=== PATIENT | female | born 1980 | race African-American/Black ===

== ENCOUNTER 2018-09-07 09:39 | Emergency (ER) | payer BC, OTHER ==
[2018-09-07] MEDS ORDERED: CYCLOBENZAPRINE 10 MG TAB ONE (10:43)
[2018-09-07] MEDS ORDERED: KETOROLAC 30 MG/ML INJ ONE (10:43)
[2018-09-07] MEDS ORDERED: HYDROCODONE/APAP 5/325 MG TAB ONE (10:43)
--- NOTE | 2018-09-07 11:25 | ER ---
Nurse's Notes [facility] Name: Mary Paul Age: 38 yrs Sex: Female : 1980 Arrival Date: 09/07/2018 Time: 09:43 Bed 12 Private MD: None, None Diagnosis: Strain of muscle, fascia and tendon of lower back;Strain of muscle and tendon of back wall of thorax Presentation: 09/07 10:01 Presenting complaint: Patient states: my back hurts started yesterday on the RIGHT tw2 side, i worked out yesterday morning and then was cleaning and it bothered me, hurts to walk. Transition of care: patient was not received from another setting of care. Onset of symptoms was September 07, 2018. Risk Assessment: Do you want to hurt yourself or someone else? Patient reports no desire to harm self or others. Initial Sepsis Screen: Does the patient meet any 2 criteria? No. Patient's initial sepsis screen is negative. Does the patient have a suspected source of infection? No. Patient's initial sepsis screen is negative. Care prior to arrival: None. 10:01 Method Of Arrival: Wheelchair tw2 10:01 Acuity: JEANE 4 tw2 Triage Assessment: 10:04 General: Appears in no apparent distress. obese, Behavior is calm, cooperative, tw2 appropriate for age. Pain: Complains of pain in right mid back and right low back. Musculoskeletal: Circulation, motion, and sensation intact. Range of motion: intact in all extremities. 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 - Social history:: Smoking status: . - Ebola Screening: : Patient denies travel to an Ebola-affected area in the 21 days before illness onset. Screenin:54 Abuse screen: Denies threats or abuse. Denies injuries from another. Nutritional iw screening: No deficits noted. Tuberculosis screening: No symptoms or risk factors identified. Fall Risk No IV (0 pts). Assessment: 10:50 General: Appears in no apparent distress. Behavior is calm, cooperative. Pain: iw Complains of pain in right leg and right low back and right mid back. Neuro: Level of Consciousness is awake, alert, obeys commands, Moves all extremities. Full function. Cardiovascular: Patient's skin is warm and dry. Respiratory: Respiratory effort is even, unlabored. GI: No signs and/or symptoms were reported involving the gastrointestinal system. Derm: Skin is intact, is healthy with good turgor. Musculoskeletal: Range of motion: intact in all extremities. Vital Signs: 10:03 BP 130 / 97; Pulse 87; Resp 18; Temp 98.2(O); Pulse Ox 100% on R/A; Weight 108.86 kg tw2 (R); Height 5 ft. 4 in. (162.56 cm); Pain 6/10; 10:03 Body Mass Index 41.20 (108.86 kg, 162.56 cm) tw2 10:03 "if i move to a 04/13" tw2 ED Course: 09:43 Patient arrived in ED. mr 09:43 None, None is Private Physician. mr 10:02 Triage completed. tw2 10:04 Arm band placed on. tw2 10:05 Khadar Manzano, CONSUELO is PHCP. pm1 10:05 Wayne Rayo MD is Attending Physician. pm1 10:23 Ruchi Penn, MAYKEL is Primary Nurse. iw 10:55 No provider procedures requiring assistance completed. Patient did not have IV access iw during this emergency room visit. 10:58 Patient has correct armband on for positive identification. iw Administered Medications: 10:43 Drug: TORadol 60 mg Route: IM; Site: left deltoid; iw 11:40 Follow up: Response: No adverse reaction iw 10:43 Drug: Flexeril 10 mg Route: PO; iw 11:40 Follow up: Response: No adverse reaction iw 10:43 Drug: [place] 5 mg-325 mg 1 tabs Route: PO; iw 11:40 Follow up: Response: No adverse reaction iw Outcome: 11:21 Discharge ordered by . pm1 11:44 Discharged to home via wheelchair, with family. iw 11:44 Condition: good 11:44 Discharge instructions given to patient, Instructed on discharge instructions, follow up and referral plans. medication usage, Demonstrated understanding of instructions, follow-up care, medications, Prescriptions given X 3. 11:45 Patient left the ED. iw Signatures: Doris Ordonez Irene, RN RN iw Khadar Manzano, PERSONAL CONSULTANT PERSONAL CONSULTANT pm1 Alicja Kinney RN RN tw2
--- NOTE | 2018-09-07 11:25 | EDPHYS ---
Physician Documentation [facility] Name: Mary Paul Age: 38 yrs Sex: Female : 1980 Arrival Date: 09/07/2018 Time: 09:43 Bed 12 Private MD: None, None ED Physician Wayne Rayo HPI: 09/07 11:03 This 38 yrs old Black Female presents to ER via Wheelchair with complaints of Back Pain.pm1 11:03 The patient presents with pain that is acute. The symptoms are located in the right mid pm1 back and right low back. Onset: The symptoms/episode began/occurred yesterday. The pain does not radiate. Associated signs and symptoms: Pertinent negatives: abdominal pain, chest pain, constipation, dysuria, fever, headache, incontinence, nausea, numbness, tingling, vomiting, weakness. The problem was sustained Exercising and cleaning. Modifying factors: The patient symptoms are alleviated by heat application, rest, the patient symptoms are aggravated by bending, movement, walking, raising right arm. Severity of symptoms: in the emergency department the symptoms are actually worse. The patient has not experienced similar symptoms in the past. The patient has not recently seen a physician. 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 - Social history:: Smoking status: . - Ebola Screening: : Patient denies travel to an Ebola-affected area in the 21 days before illness onset. ROS: 11:03 Constitutional: Negative for fever, chills, and weight loss, Eyes: Negative for injury, pm1 pain, redness, and discharge, ENT: Negative for injury, pain, and discharge, Neck: Negative for injury, pain, and swelling, Cardiovascular: Negative for chest pain, palpitations, and edema, Respiratory: Negative for shortness of breath, cough, wheezing, and pleuritic chest pain, Abdomen/GI: Negative for abdominal pain, nausea, vomiting, diarrhea, and constipation. 11:03 : Negative for injury, bleeding, discharge, and swelling, MS/Extremity: Negative for injury and deformity, Skin: Negative for injury, rash, and discoloration, Neuro: Negative for headache, weakness, numbness, tingling, and seizure. 11:03 Back: Positive for pain with movement, of the right mid back and right low back. Exam: 11:03 Constitutional: This is a well developed, well nourished patient who is awake, alert, pm1 and in no acute distress. Head/Face: Normocephalic, atraumatic. Eyes: Pupils equal round and reactive to light, extra-ocular motions intact. Lids and lashes normal. Conjunctiva and sclera are non-icteric and not injected. Cornea within normal limits. Periorbital areas with no swelling, redness, or edema. ENT: Nares patent. No nasal discharge, no septal abnormalities noted. Tympanic membranes are normal and external auditory canals are clear. Oropharynx with no redness, swelling, or masses, exudates, or evidence of obstruction, uvula midline. Mucous membranes moist. Neck: Trachea midline, no thyromegaly or masses palpated, and no cervical lymphadenopathy. Supple, full range of motion without nuchal rigidity, or vertebral point tenderness. No Meningismus. Chest/axilla: Normal chest wall appearance and motion. Nontender with no deformity. No lesions are appreciated. Cardiovascular: Regular rate and rhythm with a normal S1 and S2. No gallops, murmurs, or rubs. Normal PMI, no JVD. No pulse deficits. Respiratory: Lungs have equal breath sounds bilaterally, clear to auscultation and percussion. No rales, rhonchi or wheezes noted. No increased work of breathing, no retractions or nasal flaring. Abdomen/GI: Soft, non-tender, with normal bowel sounds. No distension or tympany. No guarding or rebound. No evidence of tenderness throughout. 11:03 Skin: Warm, dry with normal turgor. Normal color with no rashes, no lesions, and no evidence of cellulitis. MS/ Extremity: Pulses equal, no cyanosis. Neurovascular intact. Full, normal range of motion. 11:03 Back: normal spinal alignment noted, muscle spasm, is appreciated in the right mid back and right low back. 11:03 Neuro: Orientation: is normal, Mentation: is normal, Motor: is normal, moves all fours, Sensation: is normal, no obvious gross deficits. Vital Signs: 10:03 BP 130 / 97; Pulse 87; Resp 18; Temp 98.2(O); Pulse Ox 100% on R/A; Weight 108.86 kg tw2 (R); Height 5 ft. 4 in. (162.56 cm); Pain 6/10; 10:03 Body Mass Index 41.20 (108.86 kg, 162.56 cm) tw2 10:03 "if i move to a 04/13" tw2 MDM: 10:15 Patient medically screened. pm1 10:27 Data reviewed: vital signs. Data interpreted: Pulse oximetry: on room air is 100 %. pm1 Interpretation: normal. 11:21 Counseling: I had a detailed discussion with the patient and/or guardian regarding: the pm1 historical points, exam findings, and any diagnostic results supporting the discharge/admit diagnosis, the need for outpatient follow up, to return to the emergency department if symptoms worsen or persist or if there are any questions or concerns that arise at home. Administered Medications: 10:43 Drug: TORadol 60 mg Route: IM; Site: left deltoid; iw 11:40 Follow up: Response: No adverse reaction iw 10:43 Drug: Flexeril 10 mg Route: PO; iw 11:40 Follow up: Response: No adverse reaction iw 10:43 Drug: [place] 5 mg-325 mg 1 tabs Route: PO; iw 11:40 Follow up: Response: No adverse reaction iw Disposition: 12:00 Co-signature as Attending Physician, Wayne Rayo MD I agree with the assessment and kdr plan of care. Disposition: 09/07/18 11:21 Discharged to Home. Impression: Strain of muscle, fascia and tendon of lower back, Strain of muscle and tendon of back wall of thorax. - Condition is Stable. - Discharge Instructions: Back Pain, Adult, Muscle Strain, Back Injury Prevention, [id number]. - Prescriptions for Naprosyn 500 mg Oral Tablet - take 1 tablet by ORAL route 2 times per day take with food; 30 tablet. Tylenol- Codeine #3 300-30 mg Oral Tablet - take 2 tablets by ORAL route every 6 hours As needed; 20 tablet. Cyclobenzaprine 10 mg Oral Tablet - take 1 tablet by ORAL route every 8 hours As needed; 30 tablet. - Work release form, Medication Reconciliation Form, Thank You Letter, Prescription Opioid Use form. - Follow up: Emergency Department; When: As needed; Reason: Worsening of condition. Follow up: Private Physician; When: 2 - 3 days; Reason: Recheck today's complaints, Continuance of care, Re-evaluation by your physician. - Problem is new. - Symptoms have improved. Signatures: Wayne Rayo MD MD kdr Ruchi Penn RN RN iw Khadar Manzano NP [employer] pm1 Alicja Kinney RN RN tw2 Corrections: (The following items were deleted from the chart) 11:45 11:21 09/07/2018 11:21 Discharged to Home. Impression: Strain of muscle, fascia and iw tendon of lower back; Strain of muscle and tendon of back wall of thorax. Condition is Stable. Forms are Medication Reconciliation Form, Thank You Letter, Antibiotic Education, Prescription Opioid Use. Follow up: Emergency Department; When: As needed; Reason: Worsening of condition. Follow up: Private Physician; When: 2 - 3 days; Reason: Recheck today's complaints, Continuance of care, Re-evaluation by your physician. Problem is new. Symptoms have improved. pm1
== END 2018-09-07 11:45 | disposition home or self-care (01) ==
LOC: ER 09:39
DX: S39.012A Strain of muscle, fascia and tendon of lower back, initial encounter (principal); S29.012A Strain of muscle and tendon of back wall of thorax, initial encounter
CPT/HCPCS: 96372; 99283

== ENCOUNTER 2024-03-21 09:45 | Emergency (ER) | payer BC ==
--- NOTE | 2024-03-21 09:57 | EDPHYS ---
Physician Documentation [facility] Name: Mary Paul Age: 43 yrs Sex: Female : 1980 Arrival Date: 03/21/2024 Time: 09:45 Bed 16 Private MD: ED Physician Ron Hartmann HPI: 03/21 10:00 This 43 yrs old Black Female presents to ER via Ambulatory with complaints of Drainage rt From Ear. 10:00 Patient presents to the ED with drainage from the left ear with minimal pain since last rt night. Reports nasal congestion but denies other acute complaints. Symptoms are mild in severity, no other aggravating alleviating factors.. Historical: - Allergies: :48 No Known Allergies; ll1 - Home Meds: :54 None [Active]; ll1 - PMHx: :54 None; ll1 - PSHx: 09:54 section; ll1 - Immunization history:: Adult Immunizations up to date. - Social history:: Smoking status: Patient denies any tobacco usage or history of. - Family history:: not pertinent. ROS: 10:00 Constitutional: Negative for fever, chills, and weight loss, Cardiovascular: Negative rt for chest pain, palpitations, and edema, Respiratory: Negative for shortness of breath, cough, wheezing, and pleuritic chest pain, Abdomen/GI: Negative for abdominal pain, nausea, vomiting, diarrhea, and constipation, Neuro: Negative for headache, weakness, numbness, tingling, and seizure, 10:00 ENT: Positive for drainage from ear(s), rhinorrhea, Exam: 10:00 Constitutional: This is a well developed, well nourished patient who is awake, alert, rt and in no acute distress. Head/Face: Normocephalic, atraumatic. Chest/axilla: Normal chest wall appearance and motion. Nontender with no deformity. No lesions are appreciated. Cardiovascular: Regular rate and rhythm with a normal S1 and S2. No gallops, murmurs, or rubs. Normal PMI, no JVD. No pulse deficits. Respiratory: Lungs have equal breath sounds bilaterally, clear to auscultation and percussion. No rales, rhonchi or wheezes noted. No increased work of breathing, no retractions or nasal flaring. Abdomen/GI: Soft, non-tender, with normal bowel sounds. No distension or tympany. No guarding or rebound. No evidence of tenderness throughout. Skin: Warm, dry with normal turgor. Normal color with no rashes, no lesions, and no evidence of cellulitis. MS/ Extremity: Pulses equal, no cyanosis. Neurovascular intact. Full, normal range of motion. 10:00 ENT: Otorrhea from left EAC, TM is clear, no signs of mastoiditis, no posterior pharyngeal erythema or exudates, right TM is clear. Vital Signs: 09:54 BP 155 / 112; Pulse 112; Resp 17; Temp 97.8; Pulse Ox 98% ; Weight 108.86 kg; Height 5 ll1 ft. 5 in. ; 09:54 Body Mass Index 39.94 (108.86 kg, 165.1 cm) ll1 MDM: 09:49 Patient medically screened. rt 10:00 Differential diagnosis: otitis media, otitis externa. Data reviewed: vital signs, rt nurses notes. Test considered but Not performed: CT: No signs of mastoiditis, CT scan not indicated. Counseling: I had a detailed discussion with the patient and/or guardian regarding the historical points, exam findings, and any diagnostic results supporting the discharge/admit diagnosis, the need for outpatient follow up. Administered Medications: No medications were administered Disposition Summary: 03/21/24 09:57 Discharge Ordered Notes: Location: Home rt Problem: new rt Symptoms: are unchanged rt Condition: Stable rt Diagnosis - Unspecified otitis externa, left ear rt Followup: rt - With: Private Physician - When: 2 - 3 days - Reason: Discharge Instructions: - Discharge Summary Sheet rt - Otitis Externa rt Forms: - Medication Reconciliation Form rt - Antibiotic Education rt - Prescription Opioid Use rt - Patient Portal Instructions rt - Leadership Thank You Letter rt Prescriptions: - Ciprodex 0.3-0.1 % Otic drops, suspension - instill 4 drops OTIC route every 12 hours for 7 days please disp qs for 7 days, rt for ears ONLY; 1 Each; Refills: 0, Product Selection Permitted Signatures: Behzad Domínguez RN RN ll1 Ron Hartmann MD MD rt
--- NOTE | 2024-03-21 09:57 | ER ---
Nurse's Notes [facility] Name: Mary Paul Age: 43 yrs Sex: Female : 1980 Arrival Date: 03/21/2024 Time: 09:45 Bed 16 Private MD: Diagnosis: Unspecified otitis externa, left ear Presentation: 03/21 09:48 Coronavirus screen: Client denies travel out of the [place] in the last 14 days. At this ll1 time, the client does not indicate any symptoms associated with coronavirus-19. Ebola Screen: Patient denies travel to an Ebola-affected area in the 21 days before illness onset. Initial Sepsis Screen: Does the patient meet any 2 criteria? No. Patient's initial sepsis screen is negative. Does the patient have a suspected source of infection? No. Patient's initial sepsis screen is negative. Risk Assessment: Do you want to hurt yourself or someone else? Patient reports no desire to harm self or others. 09:48 Method Of Arrival: Ambulatory ll1 09:48 Acuity: JEANE 4 ll1 09:54 Chief complaint: Patient states: Congestion, slight cough and fever started yesterday. ll1 L ear pain with drainage started throughout the night. Onset of symptoms was March 20, 2024. Triage Assessment: 09:49 General: Appears uncomfortable, Behavior is calm, cooperative, appropriate for age. ll1 Pain: Complains of pain in left ear Quality of pain is described as aching. Historical: - Allergies: 09:48 No Known Allergies; ll1 - Home Meds: 09:54 None [Active]; ll1 - PMHx: 09:54 None; ll1 - PSHx: 09:54 section; ll1 - Immunization history:: Adult Immunizations up to date. - Social history:: Smoking status: Patient denies any tobacco usage or history of. - Family history:: not pertinent. Screenin:17 [facility] ED Fall Risk Assessment (Adult) History of falling in the last 3 months, kc6 including since admission No falls in past 3 months (0 pts) Confusion or Disorientation No (0 pts) Intoxicated or Sedated No (0 pts) Impaired Gait No (0 pts) Mobility Assist Device Used No (0 pt) Altered Elimination No (0 pt) Score/Fall Risk Level 0 - 2 = Low Risk Oriented to surroundings. Abuse screen: Denies threats or abuse. Denies injuries from another. Nutritional screening: No deficits noted. Tuberculosis screening: No symptoms or risk factors identified. Assessment: 10:17 General: Appears in no apparent distress. comfortable, well groomed, well developed, kc6 Behavior is calm, cooperative, appropriate for age, Reports fever for 1-2 days. Pain: Complains of pain in left ear. Neuro: Level of Consciousness is awake, alert, obeys commands, Oriented to person, place, time, situation, Appropriate for age. Cardiovascular: Capillary refill < 3 seconds. Respiratory: Reports cough that is Airway is patent Trachea midline Respiratory effort is even, unlabored, Respiratory pattern is regular, symmetrical. GI: No signs and/or symptoms were reported involving the gastrointestinal system. : No signs and/or symptoms were reported regarding the genitourinary system. EENT: Ear canal w/ drainage noted from left ear Reports pain when swallowing. Derm: No signs and/or symptoms reported regarding the dermatologic system. Skin is intact, is healthy with good turgor, Skin is pink, warm \T\ dry. Musculoskeletal: No signs and/or symptoms reported regarding the musculoskeletal system. Circulation, motion, and sensation intact. Capillary refill < 3 seconds, Range of motion: intact in all extremities. Vital Signs: 09:54 BP 155 / 112; Pulse 112; Resp 17; Temp 97.8; Pulse Ox 98% ; Weight 108.86 kg; Height 5 ll1 ft. 5 in. ; 09:54 Body Mass Index 39.94 (108.86 kg, 165.1 cm) ll1 ED Course: 09:47 Patient arrived in ED. mr 09:48 Ron Hartmann MD is Attending Physician. rt 09:48 Arm band placed on Patient placed in an exam room, on a stretcher. ll1 09:49 Triage completed. ll1 09:51 Tamie Garay, MAYKEL is Primary Nurse. kc6 10:17 Patient has correct armband on for positive identification. Bed in low position. Pulse kc6 ox on. NIBP on. Pillow given. 10:18 No provider procedures requiring assistance completed. Patient did not have IV access kc6 during this emergency room visit. Administered Medications: No medications were administered Medication: 10:19 VIS not applicable for this client. kc6 Outcome: 09:57 Discharge ordered by . rt 10:18 Discharged to home ambulatory, kc6 10:18 Condition: good 10:18 Discharge instructions given to patient, Instructed on discharge instructions, follow up and referral plans. medication usage, Demonstrated understanding of instructions, follow-up care, medications, Prescriptions given X 1, 10:19 Patient left the ED. kc6 Signatures: Doris Ordonez, Reg Reg mr Behzad Domínguez RN RN ll1 Tamie Garay RN RN kc6 Ron Hartmann MD MD rt
[2024-03-21 10:23] VITALS: BP 155/112; TEMP 97.8; O2SAT 98
== END 2024-03-21 10:19 | disposition home or self-care (01) ==
LOC: ER 09:45
DX: H60.92 Unspecified otitis externa, left ear (principal)
CPT/HCPCS: 99283

== ENCOUNTER 2024-11-01 11:15 | Emergency (ER) | payer BC ==
[2024-11-01 12:10] LABS: Absolute Basophils 0.1 K/uL (0-0.5); Absolute Eosinophils 0.2 K/uL (0-0.5); Absolute Lymphocytes (CBC) 2.1 K/uL (0.7-4.9); Absolute Monocytes 0.8 K/uL (0.1-1.3); Absolute Neutrophil 3.8 K/uL (1.8-8.0); Hematocrit 38.5 % (36.0-45.0); MCH 29.2 pg (27.0-35.0); MCHC 33.8 g/dL (32.0-36.0); MCV 86.5 fL (80-100); MPV 8.2 fL (7.6-11.3); Platelets 231 thou/uL (152-406); RBC Red Blood Cell Count 4.46 M/uL (3.86-4.86)
--- NOTE | 2024-11-01 12:18 | RAD REPORT ---
EXAM: Chest Single View HISTORY: 44 years Female CHEST PAIN COMPARISON: 07/29/2016 FINDINGS: LUNGS/PLEURA: The lungs are clear. No pleural effusions or pneumothorax. No pulmonary edema. CARDIAC/MEDIASTINUM: The cardiac silhouette is within normal limits. UPPER ABDOMEN: No significant abnormality. BONES: No acute abnormality. LINES/TUBES/OTHER: N/A IMPRESSION: No evidence of acute cardiopulmonary disease. No significant change from prior.
[2024-11-01 12:31] LABS: ALT/SGPT 15 U/L (13-56); Albumin/Globulin Ratio 0.7 (1.1-1.8); Alkaline Phosphatase 61 U/L (45-117); Anion Gap 8.1 mEq/L (5.0-15.0); BUN Blood Urea Nitrogen 10 mg/dL (7-18); Bicarbonate 27 mEq/L (21-32); Bilirubin Total 0.3 mg/dL (0.2-1.0); Globulin 4.5 g/dL (2.3-3.5); Glomerular Filtration Rate 106 ml/min (=/>90); Glucose Level 98 mg/dL (74-106); NT PRO-BNP 160 pg/mL (<125); Potassium 4.1 mEq/L (3.5-5.1); Protein, Total 7.5 g/dL (6.4-8.2); Sodium Level 139 mEq/L (136-145); Troponin High Sensitivity 6.8 pg/mL (<58.9)
[2024-11-01 12:33] LABS: AST/SGOT < 10 U/L (15-37); Bilirubin Direct < 0.2 mg/dL (0-0.2); Bilirubin Indirect, Calculated 0.1 mg/dL (0.2-0.8)
[2024-11-01 12:53] LABS: D-Dimer 0.29 FEUug/mL (0-0.500); PT Prothrombin Time 12.8 SECONDS (10-13.0); Protime INR 1.13
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
[2024-11-01 13:43] VITALS: BP 153/100; TEMP 98.3; O2SAT 100
--- NOTE | 2024-11-02 11:56 | EKG ---
Test Date: 2024-11-01 Test Time: 11:27:06 Medical Concierge: LML MEASUREMENT RESULTS: Intervals: Rate: 92 KS: 144 QRSD: 70 QT: 346 QTc: 427 [place]: P: 50 KS: 144 QRS: -18 T: -4 INTERPRETIVE STATEMENTS: Normal sinus rhythm Voltage criteria for left ventricular hypertrophy Possible Lateral infarct, age undetermined Abnormal ECG No previous ECG available for comparison Electronically Signed On 11-02-24 11:53:17 CDT by Paramjit Eli
== END 2024-11-01 13:29 | disposition home or self-care (01) ==
LOC: ER 11:15
DX: S33.5XXA Sprain of ligaments of lumbar spine, initial encounter (principal); V49.49XA Driver injured in collision with other motor vehicles in traffic accident, initial encounter
CPT/HCPCS: 36415; 71045; 80048; 80076; 83880; 84484; 85025; 85379; 85610; 93005